=== PATIENT | male | born 1970 | race African-American/Black ===

== ENCOUNTER 2023-10-22 12:46 | Inpatient (IN) | payer MEDICAID ==
[~2023-10-22] VITALS: Ht 193 cm; Wt 98.4 kg
[2023-10-22 12:50] VITALS: BP_SYST 148; PULSE 132; RESP 18; TEMP 98.9; O2SAT 96
[2023-10-22 13:21] LABS: HEMATOCRIT 42.6 % (36-54); HEMOGLOBIN 13.3 g/dL (14.0-18.0); MEAN CORPUSCULAR HEMOGLOBIN 25 pg (27-31); MEAN CORPUSCULAR HGB CONC 31 % (32-36); MEAN CORPUSCULAR VOLUME 79 fL (79.0-98.0); PLATELET COUNT (AUTO) 160 K/uL (130-430); RED BLOOD CELL COUNT(AUTO) 5.38 MIL/uL (4.2-6.2); RED CELL DISTRIBUTION WIDTH 16.4 % (9.0-15.0)
[2023-10-22 13:33] LABS: CALCIUM 9.5 mg/dL (8.4-11.0); CREATININE 1.44 mg/dL (0.55-1.30); POTASSIUM 4.4 mmol/L (3.5-5.1); WHITE BLOOD COUNT (AUTO) 123.7 K/uL (4.8-10.8)
[2023-10-22 13:38] LABS: INR 1.2 (0.80-1.20); PROTHROMBIN TIME 12.5 SECS (9.5-12.5)
[2023-10-22] MEDS ORDERED: HEPARIN SODIUM,PORCINE 5,000 UNITS/ML VIAL IVP ONE (14:00)
[2023-10-22] MEDS ORDERED: HEPARIN 25,000 UNITS/D5W 250ML 250 ML IV ONE (14:00)
[2023-10-22] MEDS: HYDROcodone/ACETAMIN 10-325 MG TAB PO ONE (14:10)
[2023-10-22] MEDS: HEPARIN SODIUM,PORCINE 5,000 UNITS/ML VIAL IVP ONE (14:23)
[2023-10-22] MEDS ORDERED: HEPARIN SODIUM,PORCINE 2000 UNITS/0.4 ML BOLUS IVP PRN (14:30)
[2023-10-22] MEDS: HEPARIN 25,000 UNITS in 250 ML PREMIX IV PRN (14:37)
[2023-10-22 14:49] LABS: BASOPHILS % (MANUAL) 0 % (0-2); EOSINOPHILS % (MANUAL) 0 % (0-7); LYMPHOCYTES % (MANUAL) 49 % (20-46); MONOCYTES % (MANUAL) 6 % (0-11)
[2023-10-22 14:50] LABS: PLATELET ESTIMATE ADEQUATE (ADEQUATE); POLYCHROMASIA SLIGHT; SMUDGE CELLS FEW
[2023-10-22 14:51] LABS: ANISOCYTOSIS 1+
[2023-10-22 15:57] LABS: HEMATOCRIT 39.8 % (36-54); HEMOGLOBIN 12.6 g/dL (14.0-18.0); MEAN CORPUSCULAR HEMOGLOBIN 25 pg (27-31); MEAN CORPUSCULAR HGB CONC 32 % (32-36); MEAN CORPUSCULAR VOLUME 78 fL (79.0-98.0); PLATELET COUNT (AUTO) 142 K/uL (130-430); RED CELL DISTRIBUTION WIDTH 16.5 % (9.0-15.0)
[2023-10-22 16:04] LABS: WHITE BLOOD COUNT (AUTO) 117.2 K/uL (4.8-10.8)
[2023-10-22] MEDS: D5/0.45 NS 1,000 ML IV SCH (16:15)
[2023-10-22 17:59] LABS: BAND % (MANUAL) 1 % (0-6); BASOPHILS % (MANUAL) 0 % (0-2); EOSINOPHILS % (MANUAL) 0 % (0-7); LYMPHOCYTES % (MANUAL) 20 % (20-46); MONOCYTES % (MANUAL) 2 % (0-11)
[2023-10-22 18:05] LABS: ANISOCYTOSIS 1+; OTHER CELLS,MANUAL % 70 (0-0); PLATELET ESTIMATE ADEQUATE (ADEQUATE); POLYCHROMASIA 1+
[2023-10-22 18:08] LABS: OVALOCYTES FEW
[2023-10-22 18:09] LABS: TEAR DROP CELLS FEW
[2023-10-22] MEDS: cloNIDine HCL 0.1 MG TABLET PO PRN (19:23)
[2023-10-22 19:45] VITALS: BP_SYST 147; PULSE 98; RESP 16; TEMP 99.5
[2023-10-22 20:07] VITALS: O2SAT 93
[2023-10-22] MEDS ORDERED: ONDANSETRON HCL 4 MG/2 ML VIAL IVP PRN (21:45)
[2023-10-22] MEDS ORDERED: HYDROcodone/ACETAMIN 5-325 MG TAB (NORCO/ VICODIN) PO PRN (21:45)
[2023-10-22] MEDS ORDERED: LORazepam 2 MG/ML VIAL IVP PRN (21:45)
[2023-10-22] MEDS ORDERED: NALOXONE HCL 0.4 MG/ML AMP (NARCAN) IVP PRN ×2 (21:45)
[2023-10-23 00:30] VITALS: BP_SYST 130; PULSE 110; RESP 16; TEMP 98.4; O2SAT 94
[2023-10-23 03:48] LABS: BASOPHILS # (AUTO) 0.8 K/uL (0.0-0.2); BASOPHILS % (AUTO) 0.7 % (0.0-2.0); NEUTROPHILS % (AUTO) 3.1 % (40.0-70.0)
[2023-10-23 03:59] LABS: EOSINOPHILS # (AUTO) 0.1 K/uL (0.0-0.4); EOSINOPHILS % (AUTO) 0.1 % (0.0-4.0); HEMATOCRIT 39.3 % (36-54); HEMOGLOBIN 12.3 g/dL (14.0-18.0); LYMPHOCYTES # (AUTO) 123.4 K/uL (1.0-5.5); LYMPHOCYTES % (AUTO) 96.1 % (20.5-51.5); MEAN CORPUSCULAR HEMOGLOBIN 25 pg (27-31); MEAN CORPUSCULAR HGB CONC 31 % (32-36); MEAN CORPUSCULAR VOLUME 78 fL (79.0-98.0); PLATELET COUNT (AUTO) 165 K/uL (130-430); RED BLOOD CELL COUNT(AUTO) 5.01 MIL/uL (4.2-6.2); RED CELL DISTRIBUTION WIDTH 16.2 % (9.0-15.0)
[2023-10-23 04:08] LABS: CALCIUM 9.1 mg/dL (8.4-11.0); CREATININE 1.24 mg/dL (0.55-1.30); POTASSIUM 4.1 mmol/L (3.5-5.1); TOTAL BILIRUBIN 0.8 mg/dL (0.0-1.0); TOTAL PROTEIN, SERUM 7.4 g/dL (6.4-8.3)
[2023-10-23 05:13] LABS: WHITE BLOOD COUNT (AUTO) 128.3 K/uL (4.8-10.8)
[2023-10-23 05:30] VITALS: BP_SYST 140; PULSE 112; RESP 16; TEMP 98.5; O2SAT 92
[2023-10-23 07:49] VITALS: BP_SYST 146; PULSE 108; RESP 18; TEMP 97.7; O2SAT 96
[2023-10-23] MEDS: HYDROcodone/ACETAMIN 10-325 MG TAB PO PRN (08:08)
[2023-10-23] MEDS ORDERED: *HEPARIN PER PHARMACY XX PRN (09:00)
[2023-10-23 12:48] VITALS: BP_SYST 159; PULSE 97; RESP 18; TEMP 98.8; O2SAT 99
[2023-10-23] MEDS: METOPROLOL SUCCINATE 25 MG TAB.SR.24H (TOPROL XL) PO ONE (12:55)
[2023-10-23 14:32] LABS: BLASTS, MANUAL % 34 % (0-0)
[2023-10-23] MEDS ORDERED: NALOXONE HCL 0.4 MG/ML AMP (NARCAN) IVP PRN (15:30)
[2023-10-23] MEDS: MORPHINE 2 MG/ML INJ. SYRINGE IVP ONE (15:58)
[2023-10-23 16:25] VITALS: BP_SYST 143; PULSE 86; RESP 18; TEMP 98.4; O2SAT 98
[2023-10-23 20:30] VITALS: BP_SYST 145; PULSE 98; RESP 18; TEMP 99.2; O2SAT 98
[2023-10-24 00:15] VITALS: BP_SYST 132; PULSE 88; RESP 18; TEMP 98.6; O2SAT 96
[2023-10-24 05:17] LABS: BASOPHILS # (AUTO) 0.4 K/uL (0.0-0.2); BASOPHILS % (AUTO) 0.4 % (0.0-2.0); EOSINOPHILS # (AUTO) 0.1 K/uL (0.0-0.4); EOSINOPHILS % (AUTO) 0.1 % (0.0-4.0); HEMATOCRIT 35.8 % (36-54); HEMOGLOBIN 11.1 g/dL (14.0-18.0); LYMPHOCYTES # (AUTO) 103.4 K/uL (1.0-5.5); LYMPHOCYTES % (AUTO) 96.8 % (20.5-51.5); MEAN CORPUSCULAR HEMOGLOBIN 25 pg (27-31); MEAN CORPUSCULAR HGB CONC 31 % (32-36); MEAN CORPUSCULAR VOLUME 79 fL (79.0-98.0); NEUTROPHILS # (AUTO) 2.9 K/uL (1.8-7.7); NEUTROPHILS % (AUTO) 2.7 % (40.0-70.0); PLATELET COUNT (AUTO) 162 K/uL (130-430); RED BLOOD CELL COUNT(AUTO) 4.52 MIL/uL (4.2-6.2); RED CELL DISTRIBUTION WIDTH 15.9 % (9.0-15.0)
[2023-10-24 05:26] LABS: ALBUMIN 2.6 g/dL (3.4-4.8); CALCIUM 8.5 mg/dL (8.4-11.0); CREATININE 0.97 mg/dL (0.55-1.30); PHOSPHORUS 3.9 mg/dL (2.7-4.5); POTASSIUM 3.8 mmol/L (3.5-5.1); TOTAL BILIRUBIN 0.6 mg/dL (0.0-1.0); TOTAL PROTEIN, SERUM 6.5 g/dL (6.4-8.3)
[2023-10-24 06:12] LABS: WHITE BLOOD COUNT (AUTO) 106.9 K/uL (4.8-10.8)
[2023-10-24 08:30] VITALS: BP_SYST 171; PULSE 86; RESP 18; TEMP 97.2; O2SAT 97
[2023-10-24] MEDS: METOPROLOL SUCCINATE 25 MG TAB.SR.24H (TOPROL XL) PO SCH (10:17)
[2023-10-24 11:14] VITALS: BP_SYST 148; PULSE 85; RESP 16; TEMP 96.8; O2SAT 97
[2023-10-24 15:00] VITALS: BP_SYST 144; PULSE 82; RESP 14; TEMP 98.5; O2SAT 97
[2023-10-24 19:00] VITALS: BP_SYST 145; PULSE 82; RESP 16; TEMP 98.9; O2SAT 98
[2023-10-24 20:00] VITALS: BP_SYST 145; PULSE 82; RESP 16; TEMP 98.9; O2SAT 98
[2023-10-25] VITALS: BP_SYST 143; PULSE 84; RESP 16; TEMP 98.6; O2SAT 98
[2023-10-25 08:08] VITALS: BP_SYST 150; PULSE 80; RESP 18; TEMP 97.4; O2SAT 93
[2023-10-25] MEDS: MIDAZOLAM HCL 5 MG/5 ML VIAL ONE (08:36)
[2023-10-25] MEDS: fentaNYL CITRATE/PF 100 MCG/2 ML AMP ONE (08:36)
[2023-10-25 09:36] LABS: HEMOGLOBIN 11.6 g/dL (14.0-18.0); MEAN CORPUSCULAR HEMOGLOBIN 25 pg (27-31); MEAN CORPUSCULAR HGB CONC 31 % (32-36); MEAN CORPUSCULAR VOLUME 79 fL (79.0-98.0); PLATELET COUNT (AUTO) 180 K/uL (130-430); RED CELL DISTRIBUTION WIDTH 16.1 % (9.0-15.0)
[2023-10-25 09:42] LABS: WHITE BLOOD COUNT (AUTO) 108.1 K/uL (4.8-10.8)
[2023-10-25 09:50] LABS: CREATININE 0.93 mg/dL (0.55-1.30); POTASSIUM 4.2 mmol/L (3.5-5.1)
[2023-10-25 10:24] LABS: ANISOCYTOSIS 1+; ATYPICAL LYMPHOCYTES % 7 % (0-0); BASOPHILS % (MANUAL) 0 % (0-2); BLASTS, MANUAL % 51 % (0-0); EOSINOPHILS % (MANUAL) 0 % (0-7); HYPOCHROMASIA 1+; LYMPHOCYTES % (MANUAL) 22 % (20-46); MONOCYTES % (MANUAL) 15 % (0-11); PLATELET ESTIMATE ADEQUATE (ADEQUATE); SMUDGE CELLS FEW
[2023-10-25 11:00] VITALS: BP_SYST 150; PULSE 98; RESP 20; TEMP 97.4; O2SAT 98
[2023-10-25 11:30] VITALS: BP_SYST 149; PULSE 98; RESP 18; TEMP 98.8; O2SAT 98
[2023-10-25] MEDS ORDERED: LIDOCAINE 1%, 20 ML MDV 20 ML ONE (11:45)
[2023-10-25 16:00] VITALS: BP_SYST 152; PULSE 95; RESP 20; TEMP 98; O2SAT 97
[2023-10-25] MEDS: HEPARIN SODIUM,PORCINE 3000 UNITS/0.6 ML BOLUS IVP PRN (17:55)
[2023-10-25 20:00] VITALS: BP_SYST 145; PULSE 81; RESP 18; TEMP 99.2; O2SAT 97
[2023-10-26] VITALS: BP_SYST 151; PULSE 87; RESP 17; TEMP 98.8; O2SAT 98
[2023-10-26 07:32] LABS: BASOPHILS # (AUTO) 0.6 K/uL (0.0-0.2); BASOPHILS % (AUTO) 0.5 % (0.0-2.0); EOSINOPHILS # (AUTO) 0.3 K/uL (0.0-0.4); EOSINOPHILS % (AUTO) 0.2 % (0.0-4.0); HEMATOCRIT 36.5 % (36-54); HEMOGLOBIN 11.4 g/dL (14.0-18.0); LYMPHOCYTES % (AUTO) 96.8 % (20.5-51.5); MEAN CORPUSCULAR HEMOGLOBIN 25 pg (27-31); MEAN CORPUSCULAR HGB CONC 31 % (32-36); MEAN CORPUSCULAR VOLUME 79 fL (79.0-98.0); NEUTROPHILS # (AUTO) 2.9 K/uL (1.8-7.7); PLATELET COUNT (AUTO) 201 K/uL (130-430); RED BLOOD CELL COUNT(AUTO) 4.61 MIL/uL (4.2-6.2); RED CELL DISTRIBUTION WIDTH 16.3 % (9.0-15.0)
[2023-10-26 07:55] LABS: ALBUMIN 2.7 g/dL (3.4-4.8); CALCIUM 8.7 mg/dL (8.4-11.0); CREATININE 0.87 mg/dL (0.55-1.30); POTASSIUM 3.8 mmol/L (3.5-5.1); TOTAL BILIRUBIN 0.5 mg/dL (0.0-1.0); TOTAL PROTEIN, SERUM 6.9 g/dL (6.4-8.3)
[2023-10-26 08:00] VITALS: BP_SYST 154; PULSE 87; RESP 16; TEMP 98.2; O2SAT 95
[2023-10-26 08:01] LABS: WHITE BLOOD COUNT (AUTO) 115.8 K/uL (4.8-10.8)
[2023-10-26 08:02] LABS: NEUTROPHILS % (AUTO) 2.5 % (40.0-70.0)
[2023-10-26] MEDS: ACETAMINOPHEN 325 MG TABLET PO PRN (09:23)
[2023-10-26] MEDS: DEXAMETHASONE SOD PHOSPHATE 4 MG/ML VIAL IVP SCH (17:40)
[2023-10-27 06:17] LABS: BASOPHILS # (AUTO) 0.7 K/uL (0.0-0.2); BASOPHILS % (AUTO) 0.7 % (0.0-2.0); EOSINOPHILS # (AUTO) 0.2 K/uL (0.0-0.4); EOSINOPHILS % (AUTO) 0.2 % (0.0-4.0); HEMATOCRIT 37.1 % (36-54); HEMOGLOBIN 11.5 g/dL (14.0-18.0); MEAN CORPUSCULAR HEMOGLOBIN 24 pg (27-31); MEAN CORPUSCULAR HGB CONC 31 % (32-36); MEAN CORPUSCULAR VOLUME 79 fL (79.0-98.0); NEUTROPHILS # (AUTO) 3.8 K/uL (1.8-7.7); NEUTROPHILS % (AUTO) 3.8 % (40.0-70.0); PLATELET COUNT (AUTO) 223 K/uL (130-430); RED BLOOD CELL COUNT(AUTO) 4.72 MIL/uL (4.2-6.2); RED CELL DISTRIBUTION WIDTH 16.2 % (9.0-15.0)
[2023-10-27 06:18] LABS: CALCIUM 9.1 mg/dL (8.4-11.0); CREATININE 0.88 mg/dL (0.55-1.30); POTASSIUM 4.1 mmol/L (3.5-5.1)
[2023-10-27 07:02] LABS: WHITE BLOOD COUNT (AUTO) 100.7 K/uL (4.8-10.8)
[2023-10-27 07:11] LABS: LYMPHOCYTES % (AUTO) 95.3 % (20.5-51.5)
[2023-10-27 08:25] VITALS: BP_SYST 152; PULSE 79; RESP 18; TEMP 97; O2SAT 98
[2023-10-27 12:00] VITALS: BP_SYST 149; PULSE 73; RESP 18; TEMP 98.2; O2SAT 97
[2023-10-27] MEDS: ALLOPURINOL 300 MG TABLET (ZYLOPRIM) PO ONE (14:51)
[2023-10-27 16:15] VITALS: BP_SYST 132; PULSE 88; RESP 20; TEMP 97.9; O2SAT 98
[2023-10-27 20:15] VITALS: BP_SYST 149; PULSE 66; RESP 18; TEMP 97.8; O2SAT 99
[2023-10-28 01:31] VITALS: BP_SYST 136; PULSE 59; RESP 16; TEMP 98; O2SAT 98
[2023-10-28 07:04] LABS: CREATININE 0.89 mg/dL (0.55-1.30); POTASSIUM 4.6 mmol/L (3.5-5.1)
[2023-10-28 07:07] LABS: HEMATOCRIT 34.5 % (36-54); HEMOGLOBIN 10.8 g/dL (14.0-18.0); MEAN CORPUSCULAR HEMOGLOBIN 25 pg (27-31); MEAN CORPUSCULAR HGB CONC 31 % (32-36); MEAN CORPUSCULAR VOLUME 79 fL (79.0-98.0); PLATELET COUNT (AUTO) 199 K/uL (130-430); RED BLOOD CELL COUNT(AUTO) 4.36 MIL/uL (4.2-6.2); RED CELL DISTRIBUTION WIDTH 16.6 % (9.0-15.0)
[2023-10-28 07:49] LABS: WHITE BLOOD COUNT (AUTO) 103.1 K/uL (4.8-10.8)
[2023-10-28 08:06] VITALS: BP_SYST 144; PULSE 62; RESP 18; TEMP 97.1; O2SAT 98
[2023-10-28] MEDS: ALLOPURINOL 300 MG TABLET (ZYLOPRIM) PO SCH (09:02)
[2023-10-28 09:04] LABS: ATYPICAL LYMPHOCYTES % 4 % (0-0); BAND % (MANUAL) 4 % (0-6); BASOPHILS % (MANUAL) 0 % (0-2); EOSINOPHILS % (MANUAL) 0 % (0-7); LYMPHOCYTES % (MANUAL) 15 % (20-46); MONOCYTES % (MANUAL) 4 % (0-11)
[2023-10-28 09:05] LABS: ANISOCYTOSIS 1+; BLASTS, MANUAL % 65 % (0-0); METAMYELOCYTES % 1 % (0-0); PLATELET ESTIMATE ADEQUATE (ADEQUATE); SMUDGE CELLS FEW
[2023-10-28 12:00] VITALS: BP_SYST 139; PULSE 63; RESP 18; TEMP 97.9; O2SAT 97
[2023-10-28 16:30] VITALS: BP_SYST 133; PULSE 64; RESP 18; TEMP 98.5; O2SAT 96
[2023-10-28 19:00] VITALS: BP_SYST 145; PULSE 66; RESP 16; TEMP 98.6; O2SAT 98
[2023-10-28 20:00] VITALS: BP_SYST 145; PULSE 66; RESP 16; TEMP 98.6; O2SAT 98
[2023-10-29] VITALS (7 sets, daily range): BP systolic 143–148; PULSE 59–69; RESP 16–22; TEMP 97.2–98.4; O2SAT 94–98
[2023-10-29 06:23] LABS: BASOPHILS # (AUTO) 0.9 K/uL (0.0-0.2); BASOPHILS % (AUTO) 0.8 % (0.0-2.0); EOSINOPHILS # (AUTO) 0.2 K/uL (0.0-0.4); EOSINOPHILS % (AUTO) 0.2 % (0.0-4.0); HEMATOCRIT 34.7 % (36-54); HEMOGLOBIN 10.7 g/dL (14.0-18.0); LYMPHOCYTES # (AUTO) 105.2 K/uL (1.0-5.5); LYMPHOCYTES % (AUTO) 94.7 % (20.5-51.5); MEAN CORPUSCULAR HEMOGLOBIN 25 pg (27-31); MEAN CORPUSCULAR HGB CONC 31 % (32-36); MEAN CORPUSCULAR VOLUME 80 fL (79.0-98.0); NEUTROPHILS # (AUTO) 4.7 K/uL (1.8-7.7); PLATELET COUNT (AUTO) 195 K/uL (130-430); RED BLOOD CELL COUNT(AUTO) 4.34 MIL/uL (4.2-6.2); RED CELL DISTRIBUTION WIDTH 17.2 % (9.0-15.0)
[2023-10-29 06:28] LABS: ALBUMIN 2.8 g/dL (3.4-4.8); CREATININE 0.93 mg/dL (0.55-1.30); POTASSIUM 4.5 mmol/L (3.5-5.1); TOTAL BILIRUBIN 0.3 mg/dL (0.0-1.0); TOTAL PROTEIN, SERUM 6.8 g/dL (6.4-8.3)
[2023-10-29 07:34] LABS: NEUTROPHILS % (AUTO) 4.3 % (40.0-70.0)
[2023-10-29] MEDS ORDERED: fentaNYL CITRATE/PF 100 MCG/2 ML AMP ONE (09:27)
[2023-10-29] MEDS ORDERED: MIDAZOLAM HCL 2 MG/2 ML VIAL (VERSED) ONE (09:27)
[2023-10-29] MEDS: DEXAMETHASONE SOD PHOSPHATE 4 MG/ML VIAL IVP ONE (13:27)
[2023-10-29] MEDS: DEXAMETHASONE SOD PHOSPHATE 4 MG/ML VIAL IVP SCH (18:26)
[2023-10-30] VITALS: BP_SYST 133; PULSE 60; RESP 16; TEMP 98.6; O2SAT 100
[2023-10-30 05:09] LABS: BASOPHILS # (AUTO) 0.6 K/uL (0.0-0.2); BASOPHILS % (AUTO) 0.6 % (0.0-2.0); EOSINOPHILS # (AUTO) 0.1 K/uL (0.0-0.4); EOSINOPHILS % (AUTO) 0.1 % (0.0-4.0); HEMATOCRIT 35.9 % (36-54); LYMPHOCYTES # (AUTO) 94.5 K/uL (1.0-5.5); MEAN CORPUSCULAR HEMOGLOBIN 25 pg (27-31); MEAN CORPUSCULAR HGB CONC 31 % (32-36); MEAN CORPUSCULAR VOLUME 80 fL (79.0-98.0); MONOCYTES # (AUTO) 1.7 K/uL (0.0-1.0); MONOCYTES % (AUTO) 1.6 % (1.7-9.3); NEUTROPHILS # (AUTO) 5.3 K/uL (1.8-7.7); NEUTROPHILS % (AUTO) 5.1 % (40.0-70.0); PLATELET COUNT (AUTO) 146 K/uL (130-430); RED BLOOD CELL COUNT(AUTO) 4.51 MIL/uL (4.2-6.2); RED CELL DISTRIBUTION WIDTH 16.9 % (9.0-15.0)
[2023-10-30 05:45] LABS: CALCIUM 9.2 mg/dL (8.4-11.0); CREATININE 0.93 mg/dL (0.55-1.30); POTASSIUM 4.5 mmol/L (3.5-5.1)
[2023-10-30 08:00] VITALS: O2SAT 99
[2023-10-30 08:59] LABS: LYMPHOCYTES % (AUTO) 92.6 % (20.5-51.5); WHITE BLOOD COUNT (AUTO) 102.2 K/uL (4.8-10.8)
[2023-10-30] MEDS ORDERED: DEC4 PO (10:36)
[2023-10-30] MEDS ORDERED: METO-304 PO (10:36)
[2023-10-30] MEDS ORDERED: ALLO300T2 PO (10:36)
[2023-10-30] MEDS ORDERED: APIX5TAB PO (10:36)
[2023-10-30 11:24] VITALS: BP_SYST 152; PULSE 64; RESP 15; TEMP 97.4; O2SAT 97
[2023-10-30] MEDS ORDERED: fentaNYL CITRATE/PF 100 MCG/2 ML AMP ONE (14:09)
[2023-10-30] MEDS ORDERED: MIDAZOLAM HCL 2 MG/2 ML VIAL (VERSED) ONE (14:09)
[2023-10-30] MEDS ORDERED: PROPOFOL 200MG/ 20ML VIAL (DIPRIVAN) IV ONE (14:17)
[2023-10-30] MEDS ORDERED: CLINDAMYCIN PHOSPHATE 900 mg/50mL D5W IV ONE (14:17)
[2023-10-30] MEDS ORDERED: LIDOCAINE/EPI 1% 1:100000 20 ML VIAL ONE (14:17)
[2023-10-30] MEDS ORDERED: HEPARIN SODIUM,PORCINE 10,000 UNIT/ML VIAL ONE (14:17)
[2023-10-30] MEDS ORDERED: NS 1000 ML IV.SOLN IV ONE (14:17)
[2023-10-30] MEDS ORDERED: NS IRRIG SOLN 1000 ML IR ONE (14:17)
[2023-10-30] MEDS ORDERED: fentaNYL CITRATE/PF 100 MCG/2 ML AMP IVP PRN ×2 (14:45)
[2023-10-30] MEDS ORDERED: NALOXONE HCL 0.4 MG/ML AMP (NARCAN) IVP PRN (14:45)
[2023-10-30] MEDS ORDERED: ONDANSETRON HCL 4 MG/2 ML VIAL IVP PRN (14:45)
[2023-10-30] MEDS ORDERED: HYDROmorphone 1 MG/ML INJ. CARTRIDGE IVP PRN (14:45)
[2023-10-30 16:44] VITALS: BP_SYST 148; PULSE 67; RESP 15; TEMP 97.6; O2SAT 97
[2023-10-30 18:27] VITALS: BP_SYST 151; PULSE 77; RESP 18; TEMP 98.3; O2SAT 97
[2023-10-30 18:32] VITALS: BP_SYST 151; PULSE 77; RESP 18; TEMP 98.7; O2SAT 94
== END 2023-10-30 19:50 | disposition home or self-care (01) | DRG 690 ==
LOC: SED 12:46 → SMU 14:06 → UNDODEPER 20:12 → STU 10-23 00:32
PROVIDERS: ADMIT Preventive Medicine Preventive Medicine/Occupational Environmental Medicine; ATTEND Preventive Medicine Preventive Medicine/Occupational Environmental Medicine
PROC: 079T3ZX Drainage of Bone Marrow, Percutaneous Approach, Diagnostic (ICD-10-PCS; 2023-10-25)
PROC: 009U3ZZ Drainage of Spinal Canal, Percutaneous Approach (ICD-10-PCS; 2023-10-29)
PROC: B01BZZZ Fluoroscopy of Spinal Cord (ICD-10-PCS; 2023-10-29)
PROC: B548ZZA Ultrasonography of Superior Vena Cava, Guidance (ICD-10-PCS; 2023-10-30)
PROC: B518ZZA Fluoroscopy of Superior Vena Cava, Guidance (ICD-10-PCS; 2023-10-30)
PROC: 0JH60WZ Insertion of Totally Implantable Vascular Access Device into Chest Subcutaneous Tissue and Fascia, Open Approach (ICD-10-PCS; 2023-10-30)
PROC: 02HV33Z Insertion of Infusion Device into Superior Vena Cava, Percutaneous Approach (ICD-10-PCS; principal; 2023-10-30 14:34)
DX: C91.00 Acute lymphoblastic leukemia not having achieved remission (principal); I26.99 Other pulmonary embolism without acute cor pulmonale; N17.0 Acute kidney failure with tubular necrosis; I82.411 Acute embolism and thrombosis of right femoral vein; I27.21 Secondary pulmonary arterial hypertension; E88.09 Other disorders of plasma-protein metabolism, not elsewhere classified; E87.1 Hypo-osmolality and hyponatremia; N17.9 Acute kidney failure, unspecified; K42.9 Umbilical hernia without obstruction or gangrene; R74.01 Elevation of levels of liver transaminase levels; R73.9 Hyperglycemia, unspecified; D64.9 Anemia, unspecified; K44.9 Diaphragmatic hernia without obstruction or gangrene; Z79.01 Long term (current) use of anticoagulants; Z88.5 Allergy status to narcotic agent; Z88.0 Allergy status to penicillin; I82.431 Acute embolism and thrombosis of right popliteal vein; I82.441 Acute embolism and thrombosis of right tibial vein
CPT/HCPCS: 36415; 62270; 71260; 76000; 76376; 76700; 77012; 80048; 80053; 83615; 83735; 84100; 84550; 85007; 85025; 85027; 85097; 85610; 85730; 88108; 88305; 93005; 93971; 96374; 99285; C1788; G0378; J1100; J1644; J2001; J2250; J2270; J2405; J2704; J3010; J3465; J3490; J7030; Q9967

== ENCOUNTER 2023-11-15 16:29 | Emergency (ER) | payer MEDICAID ==
[~2023-11-15] VITALS: Ht 193 cm; Wt 99.8 kg
[~2023-11-15 16:29] MED LIST: ALLO300T2 PO; APIX5TAB PO; DEC4 PO; METO-304 PO
[2023-11-15 16:33] VITALS: BP_SYST 142; PULSE 104; RESP 18; TEMP 98.3; O2SAT 98
[2023-11-15] MEDS: NACL 0.9% 1,000 ML IV ONE ×2 (17:09→18:30)
[2023-11-15 17:15] LABS: HEMATOCRIT 35.9 % (36-54); HEMOGLOBIN 11.2 g/dL (14.0-18.0); MEAN CORPUSCULAR HEMOGLOBIN 26 pg (27-31); MEAN CORPUSCULAR HGB CONC 31 % (32-36); MEAN CORPUSCULAR VOLUME 83 fL (79.0-98.0); PLATELET COUNT (AUTO) 57 K/uL (130-430); RED BLOOD CELL COUNT(AUTO) 4.34 MIL/uL (4.2-6.2); RED CELL DISTRIBUTION WIDTH 18.8 % (9.0-15.0)
[2023-11-15 17:25] LABS: INR 1.3 (0.80-1.20); PROTHROMBIN TIME 13.3 SECS (9.5-12.5)
[2023-11-15 17:37] LABS: ALANINE AMINOTRANSFERASE 76 U/L (12-78); ALBUMIN 3.7 g/dL (3.4-4.8); ANION GAP 13 (5-15); ASPARTATE AMINOTRANSFERASE 24 U/L (10-37); BILIRUBIN,DIRECT 0.2 mg/dL (0.0-0.3); CALCIUM 8.7 mg/dL (8.4-11.0); CARBON DIOXIDE 23 mmol/L (23-29); CHLORIDE 92 mmol/L (98-107); CREATININE 1.35 mg/dL (0.55-1.30); GFR AFRICAN AMERICAN 71 mL/min (>90); SODIUM SERUM 128 mmol/L (136-145); TOTAL BILIRUBIN 0.8 mg/dL (0.0-1.0); TOTAL PROTEIN, SERUM 7.2 g/dL (6.4-8.3); UREA NITROGEN, BLOOD 27 mg/dL (8-21)
[2023-11-15 17:38] LABS: WHITE BLOOD COUNT (AUTO) 176.4 K/uL (4.8-10.8)
[2023-11-15 17:39] LABS: GFR NON AFRICAN-AMERICAN 58 mL/min (>90)
[2023-11-15 17:40] LABS: GLUCOSE 707 mg/dL (74-106)
[2023-11-15 17:49] LABS: BILIRUBIN,URINE NEGATIVE (NEGATIVE); BLOOD, URINE NEGATIVE (NEGATIVE); CLARITY/URINE CLEAR (CLEAR); COLOR,URINE YELLOW (YELLOW); GLUCOSE,URINE 3+ (NEGATIVE); KETONES,URINE NEGATIVE (NEGATIVE); LEUKOCYTE ESTERASE ,URINE NEGATIVE (NEGATIVE); NITRITE, URINE NEGATIVE (NEGATIVE); PH,URINE 5.5 (5.0-8.0); PROTEIN URINE NEGATIVE (NEGATIVE); UROBILINOGEN,URINE 0.2 (0.2-1.0)
[2023-11-15] MEDS: INSULIN REGULAR, HUMAN 10 UNITS/0.1 ML, 3 ML VIAL IVP ONE (18:01)
[2023-11-15 18:12] LABS: ABG O2 SAT% ESTIMATE 94.6 % (94.0-100.0); BLOOD GAS BASE EXCESS 1.1 mmol/L (-3.0-3.0); BLOOD GAS HCO3 23.4 mmol/L (21.0-27.0); BLOOD GAS PH 7.496 (7.350-7.450); BLOOD GAS PO2 65.2 mmHg (75.0-100.0)
[2023-11-15 18:12] LABS: BACTERIA,URINE RARE /HPF (None Seen); RBC,URINE 0-3 /HPF (0-3); WBC,URINE 0-3 /HPF (0-3)
[2023-11-15 18:27] LABS: ALLEN'S TEST POSITIVE (P)
[2023-11-15 18:30] LABS: ATYPICAL LYMPHOCYTES % 6 % (0-0); BAND % (MANUAL) 4 % (0-6); BASOPHILS % (MANUAL) 0 % (0-2); EOSINOPHILS % (MANUAL) 0 % (0-7); LYMPHOCYTES % (MANUAL) 26 % (20-46); MONOCYTES % (MANUAL) 0 % (0-11)
[2023-11-15 18:32] LABS: ANISOCYTOSIS 1+; BLASTS, MANUAL % 62 % (0-0); HYPOCHROMASIA 1+; PLATELET ESTIMATE DECREASED (ADEQUATE)
[2023-11-15 18:33] LABS: OVALOCYTES MODERATE; TEAR DROP CELLS FEW
[2023-11-15] MEDS: DEXAMETHASONE SOD PHOSPHATE 10 MG/ML VIAL IV ONE (18:59)
[2023-11-16] MEDS: NACL 0.9% 1,000 ML IV ONE ×2 (00:26→02:38)
[2023-11-16] MEDS ORDERED: INSULIN REGULAR, HUMAN 10 UNITS/0.1 ML, 3 ML VIAL ONE ×3 (00:31→02:43)
[2023-11-16] MEDS: INSULIN REGULAR, HUMAN 100 UNITS/ML, 3 ML VIAL IVP ONE ×2 (00:32→02:45)
[2023-11-16] MEDS: INSULIN REGULAR, HUMAN 100 UNITS/ML, 3 ML VIAL IV ONE (02:06)
[2023-11-16 02:18] LABS: CALCIUM 7.6 mg/dL (8.4-11.0); CREATININE 0.8 mg/dL (0.55-1.30)
[2023-11-16 07:00] VITALS: BP_SYST 140; PULSE 80; RESP 14; TEMP 97.7; O2SAT 96
== END 2023-11-16 07:06 | disposition short-term general hospital (02) ==
LOC: SED 16:29
DX: E11.65 Type 2 diabetes mellitus with hyperglycemia (principal); N17.9 Acute kidney failure, unspecified; C91.00 Acute lymphoblastic leukemia not having achieved remission; E86.0 Dehydration; Z88.0 Allergy status to penicillin; Z88.5 Allergy status to narcotic agent; Z91.018 Allergy to other foods; Z79.899 Other long term (current) drug therapy
CPT/HCPCS: 99291; 96365; 96361 ×2; 71045; 96366; 96375; 85027; 80076; 80048; 81001; 83880; 83735; 85007; 85610; 85730; 87040; 87086; 84484; 36415; 36600; 82803; 99292; 83605; 81000; 96376; 81015; J1100; J1815 ×2; J7030